=== PATIENT | female | born 1990 | race Caucasian/White ===

== ENCOUNTER 2018-04-06 12:41 | Inpatient (IN) | payer OTHER ==
[2018-04-06] MEDS ORDERED: Nalbuphine 20 MG/ML 1 ML Syringe IVPUSH PRN (13:55)
[2018-04-06] MEDS ORDERED: Sodium Chloride 0.9% 10 ML Syringe FLUSH PRN (13:55)
[2018-04-06] MEDS ORDERED: Oxytocin/Lactated Ringers 10 UNIT/1,000 ML BAG IV SCH ×2 (14:00)
[2018-04-06] MEDS ORDERED: Misoprostol 25 MCG (1/4 of 100 MCG) Tab VAG ONE (14:30)
[2018-04-06] MEDS ORDERED: Ampicillin 2 GM in Sodium Chloride 0.9% 100 ML IV ONE (14:30)
--- NOTE | 2018-04-06 14:35 | PCM.LDHP ---
L&D History of Present Illness - General Date of Service: 04/06/18 Admit Problem/Dx: Patient Status Order with Admit Dx/Problem 04/06/18 13:15 Patient Status [ADT] Routine Admission Diagnosis/Problem Admission Diagnosis/Problem Source of Information: Patient History Limitations: Reports: No Limitations - History of Present Illness Introduction:: 28-year-old ALISHA 04/02/18 at estimated gestational age of 40 weeks and 4 days presented for induction of labor. GBS positive antibiotics will be started History of HSV in the past has been treated since 36 weeks no outbreaks at present time. Blood work on 08/05/17 blood type O-positive antibody screen negative hemoglobin hematocrit 14/42.4 platelets 265,000 Pap smear negative, rubella immune, serology nonreactive, urine culture no growth. Hepatitis B surface antigen negative declined HIV. GC and chlamydia probe were negative On 12/31/17 hemoglobin hematocrit 12.5/36.5 platelets 179,001 hour OB glucose screen 94, RPR nonreactive. 03/03/18 group B strep positive Plan induction of labor. 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: Psychiatric History: Reports: Depression - Infectious Disease History Infectious Disease History: Reports: Herpes, Other (See Below) Other Infectious Disease History: hx of chlamydia - Past Surgical History HEENT Surgical History: Reports: Other (See Below) Other HEENT Surgeries/Procedures: wisdom teeth Social & Family History - Family History Family Medical History: Noncontributory - Tobacco Use Smoking Status *Q: Never Smoker - Caffeine Use Caffeine Use: Reports: Coffee, Soda - Recreational Drug Use Recreational Drug Use: No H&P Review of Systems - Review of Systems: Review Of Systems: See Below General: Reports: No Symptoms HEENT: Reports: No Symptoms Pulmonary: Reports: No Symptoms Cardiovascular: Reports: No Symptoms Gastrointestinal: Reports: No Symptoms Genitourinary: Reports: No Symptoms Musculoskeletal: Reports: No Symptoms Skin: Reports: No Symptoms Psychiatric: Reports: No Symptoms Neurological: Reports: No Symptoms Hematologic/Lymphatic: Reports: No Symptoms Immunologic: Reports: No Symptoms L&D Exam - Exam Exam: See Below - Vital Signs Weight: 208 lb 8 oz - OB Specific Fundal Height In cm: 41 Movement: Active Heart Tones: Present Heart Tones per Min: 140 Heart Rate (FHR) Variability: Moderate (6-25 bmp) Presentation: Vertex - Stoddard Score Stoddard Score Cervix Position: Posterior Stoddard Score Consistency: Soft Stoddard Score Effacement: 31-50% Stoddard Score Dilation: 1-2 cm Stoddard Score 's Station: -2 Stoddard Score Total: 5 - Exam General: Alert, Oriented HEENT: Conjunctiva Clear, Mucosa Moist & [place], PERRLA Neck: Supple, Trachea Midline Lungs: Clear to Auscultation, Normal Respiratory Effort Cardiovascular: Regular Rate, Regular Rhythm GI/Abdominal Exam: Normal Bowel Sounds, Soft Genitourinary: Normal external exam Extremities: Normal Inspection, Normal Range of Motion, Non-Tender, No Pedal Edema, Normal Capillary Refill Skin: Warm, Dry, Intact Neurological: Reflexes Equal Bilateral Psychiatric: Alert, Normal Affect, Normal Mood - Problem List (1) 40 weeks gestation of SNOMED Code(s): 96007032 ICD Code: Z3A.40 - 40 WEEKS GESTATION OF Status: Acute Current Visit: Yes (2) GBS carrier SNOMED Code(s): 6826433145843 ICD Code: Z22.330 - CARRIER OF GROUP B STREPTOCOCCUS Status: Acute Current Visit: Yes (3) Herpes simplex type 2 (HSV-2) infection affecting , antepartum SNOMED Code(s): 008943484 ICD Code: O98.519 - OTHER VIRAL DISEASES COMPLICATING , UNSP TRIMESTER; B00.9 - HERPESVIRAL INFECTION, UNSPECIFIED Status: Acute Current Visit: Yes Onset Date: Problem Details: no lesions since 36 weeks on Valacyclovir prophylaxis Problem List Initiated/Reviewed/Updated: No Orders Last 24hrs: Active Orders 24 hr Category Date Time Status Patient Status [ADT] Routine ADT 04/06/18 13:15 Active Activity as Tolerated [RC] PFP Care 04/06/18 13:56 Active Communication Order [RC] ASDIRECTED Care 04/06/18 13:56 Active Heart Tones [RC] ASDIRECTED Care 04/06/18 13:56 Active Non Stress Test [RC] PER UNIT ROUTINE Care 04/06/18 13:56 Active Notify Provider [RC] PFP Care 04/06/18 13:56 Active Notify Provider [RC] PRN Care 04/06/18 13:56 Active Peripheral IV Care [RC] . DIRECTED Care 04/06/18 13:56 Active Vital Signs [RC] PER UNIT ROUTINE Care 04/06/18 13:56 Active Regular Diet [DIET] Diet 04/06/18 Dinner Active CBC WITH AUTO DIFF [HEME] Stat Lab 04/06/18 14:15 Received RAPID PLASMA REAGIN,RPR [CHEM] Routine Lab 04/06/18 14:15 Received TYPE AND SCREEN [BBK] Stat Lab 04/06/18 14:15 Received Ampicillin 1 gm Med 04/06/18 18:30 Active Sodium Chloride 0.9% [Normal Saline] 100 ml IV Q4H Ampicillin 2 gm Med 04/06/18 14:30 Active Sodium Chloride 0.9% [Normal Saline] 100 ml IV ONETIME Lactated Ringers [Ringers, Lactated] 1,000 ml Med 04/06/18 14:00 Active IV ASDIRECTED Nalbuphine [Nubain] Med 04/06/18 13:55 Active 10 mg IVPUSH Q2H PRN Oxytocin/Lactated Ringers [Pitocin in LR 10 Units/1,000 Med 04/06/18 14:00 Active ML] 10 unit in 1,000 ml IV .CONTINUOUS Oxytocin/Lactated Ringers [Pitocin in LR 10 Units/1,000 Med 04/06/18 14:00 Active ML] 10 unit in 1,000 ml IV TITRATE Sodium Chloride 0.9% [Saline Flush] Med 04/06/18 13:55 Active 10 ml FLUSH ASDIRECTED PRN miSOPROStol [Cytotec] Med 04/06/18 14:30 Once 25 mcg VAG ONETIME ONE Electronic Heart Tones Ext w TOCO [WOMSER] Oth 04/06/18 13:56 Ordered Routine Electronic Heart Tones Internal [WOMSER] Per Unit Oth 04/06/18 13:56 Ordered Routine Peripheral IV Insertion Adult [OM.PC] Routine Oth 04/06/18 13:56 Ordered Resuscitation Status Routine Resus Stat 04/06/18 13:55 Ordered Medication Orders Ampicillin Sodium 2 gm/ Sodium (Chloride) 100 mls @ 200 mls/hr IV ONETIME ONE Stop: 04/06/18 14:59 Last Admin: 02/12/19 14:28 Dose: 200 mls/hr Ampicillin Sodium 1 gm/ Sodium (Chloride) 100 mls @ 200 mls/hr IV Q4H KIRAN Lactated Ringer's (Ringers, Lactated) 1,000 mls @ 100 mls/hr IV ASDIRECTED KIRAN Oxytocin/Lactated Ringer's (Pitocin In Lr 10 Units/1,000 Ml) 10 unit in 1,000 mls @ 12 mls/hr IV TITRATE KIRAN; Protocol Oxytocin/Lactated Ringer's (Pitocin In Lr 10 Units/1,000 Ml) 10 unit in 1,000 mls @ 500 mls/hr IV .CONTINUOUS KIRAN Misoprostol (Cytotec) 25 mcg VAG ONETIME ONE Stop: 04/06/18 14:31 Last Admin: 04/06/18 14:28 Dose: 25 mcg Nalbuphine HCl (Nubain) 10 mg IVPUSH Q2H PRN PRN Reason: pain Sodium Chloride (Saline Flush) 10 ml FLUSH ASDIRECTED PRN PRN Reason: Keep Vein Open Assessment/Plan Comment:: Plan induction and delivery. First Cytotec 25 g placed at 1417 hrs.
[2018-04-06] MEDS: Misoprostol 25 MCG (1/4 of 100 MCG) Tab VAG SCH ×2 (16:57→20:59)
--- NOTE | 2018-04-06 16:58 | PCM.SN ---
- Free Text/Narrative Note: Second dosage of Cytotec this time 50 g placed in the superior aspect of the vagina near the cervical os. Patient is angie every 3-5 minutes. No cervical change. Will repeat cytotech at 2100 hrs. and again at 0100 hrs. and then start Pitocin at 0500 hrs.
--- NOTE | 2018-04-06 17:14 | PCM.PREANE ---
Preanesthetic Assessment - Procedure Proposed Procedure: DAGMAR - Anesthesia/Transfusion/Family Hx Anesthesia History: Prior Anesthesia Without Reaction (no problems with wisdom teeth extraction) Transfusion History: No Prior Transfusion(s) - Review of Systems General: No Symptoms Pulmonary: No Symptoms Cardiovascular: No Symptoms Gastrointestinal: Other (GERD) Neurological: No Symptoms Other: Reports: None - Physical Assessment NPO Status Date: 04/06/18 NPO Status Time: 13:00 O2 Sat by Pulse Oximetry: 100 Respiratory Rate: 18 Vital Signs: Last Vital Signs Temp 36.6 C 04/06/18 13:56 Pulse 82 04/06/18 13:56 Resp 18 04/06/18 13:56 BP 123/80 04/06/18 13:56 Pulse Ox 100 04/06/18 13:56 Height: 1.57 m Weight: 94.574 kg ASA Class: 2 Mental Status: Alert & Oriented x3 Airway Class: Mallampati = 2 Dentition: Reports: Normal Dentition Thyro-Mental Finger Breadths: 3 Mouth Opening Finger Breadths: 3 ROM/Head Extension: Full Lungs: Clear to Auscultation, Normal Respiratory Effort Cardiovascular: Regular Rate, Regular Rhythm - Lab Values: Laboratory Last Values WBC 8.46 K/mm3 (3.98-10.04) 04/06/18 14:15 RBC 4.24 M/mm3 (3.98-5.22) 04/06/18 14:15 Hgb 13.5 gm/L (11.2-15.7) 04/06/18 14:15 Hct 39.7 % (34.1-44.9) 04/06/18 14:15 MCV 93.6 fl (79.4-94.8) 04/06/18 14:15 MCH 31.8 pg (25.6-32.2) 04/06/18 14:15 MCHC 34.0 g/dl (32.2-35.5) 04/06/18 14:15 RDW Std Deviation 46.1 fL (36.4-46.3) 04/06/18 14:15 Plt Count 166 K/mm3 (182-369) L 04/06/18 14:15 MPV 11.1 fl (9.4-12.3) 04/06/18 14:15 Neut % (Auto) 75.6 % (34.0-71.1) H 04/06/18 14:15 Lymph % (Auto) 16.4 % (19.3-51.7) L 04/06/18 14:15 Richardson % (Auto) 6.9 % (4.7-12.5) 04/06/18 14:15 Eos % (Auto) 0.5 (0.7-5.8) L 04/06/18 14:15 Baso % (Auto) 0.1 % (0.1-1.2) 04/06/18 14:15 Neut # (Auto) 6.40 K/mm3 (1.56-6.13) H 04/06/18 14:15 Lymph # (Auto) 1.39 K/mm3 (1.18-3.74) 04/06/18 14:15 Richardson # (Auto) 0.58 K/mm3 (0.24-0.36) H 04/06/18 14:15 Eos # (Auto) 0.04 K/mm3 (0.04-0.36) 04/06/18 14:15 Baso # (Auto) 0.01 K/mm3 (0.01-0.08) 04/06/18 14:15 Blood Type O POSITIVE 04/06/18 14:15 Gel Antibody Screen Negative 04/06/18 14:15 - Allergies Allergies/Adverse Reactions: Allergies Allergy/AdvReac Type Severity Reaction Status Date / Time No Known Allergies Allergy Verified 04/06/18 13:55 - Blood Blood Available: No Product(s) Available: None - Anesthesia Plan Pre-Op Medication Ordered: None - Acknowledgements Anesthesia Type Planned: Epidural Pt an Appropriate Candidate for the Planned Anesthesia: Yes Alternatives and Risks of Anesthesia Discussed w Pt/Guardian: Yes Pt/Guardian Understands and Agrees with Anesthesia Plan: Yes 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: Psychiatric History: Reports: Depression - Infectious Disease History Infectious Disease History: Reports: Herpes, Other (See Below) Other Infectious Disease History: hx of chlamydia - Past Surgical History HEENT Surgical History: Reports: Other (See Below) Other HEENT Surgeries/Procedures: wisdom teeth - SUBSTANCE USE Smoking Status *Q: Never Smoker Recreational Drug Use History: No - HOME MEDS Home Medications: Home Meds PNV #116/Iron Fumarate/FA/DHA [Expecta Combo Pack] 1 each PO DAILY 02/10 [History] valACYclovir [Valtrex] 500 mg PO BID 04/06/18 [History] - CURRENT (IN HOUSE) MEDS Current Meds: Current Medications Ampicillin Sodium 1 gm/ Sodium (Chloride) 100 mls @ 200 mls/hr IV Q4H KIRAN Lactated Ringer's (Ringers, Lactated) 1,000 mls @ 100 mls/hr IV ASDIRECTED KIRAN Oxytocin/Lactated Ringer's (Pitocin In Lr 10 Units/1,000 Ml) 10 unit in 1,000 mls @ 12 mls/hr IV TITRATE KIRAN; Protocol Oxytocin/Lactated Ringer's (Pitocin In Lr 10 Units/1,000 Ml) 10 unit in 1,000 mls @ 500 mls/hr IV .CONTINUOUS KIRAN Misoprostol (Cytotec) 50 mcg VAG Q4HR KIRAN Last Admin: 04/06/18 16:57 Dose: 50 mcg Nalbuphine HCl (Nubain) 10 mg IVPUSH Q2H PRN PRN Reason: pain Sodium Chloride (Saline Flush) 10 ml FLUSH ASDIRECTED PRN PRN Reason: Keep Vein Open Valacyclovir HCl (Valtrex) 500 mg PO BID KIRAN Discontinued Medications Ampicillin Sodium 2 gm/ Sodium (Chloride) 100 mls @ 200 mls/hr IV ONETIME ONE Stop: 04/06/18 14:59 Last Admin: 04/06/18 14:28 Dose: 200 mls/hr Misoprostol (Cytotec) 25 mcg VAG ONETIME ONE Stop: 04/06/18 14:31 Last Admin: 04/06/18 14:28 Dose: 25 mcg
[2018-04-06] MEDS ORDERED: ePHEDrine 50 MG/ML SDV IVPUSH PRN (17:15)
[2018-04-06] MEDS ORDERED: fentaNYL 100 MCG/2 ML SDV EPIDUR PRN (17:15)
[2018-04-06] MEDS ORDERED: diphenhydrAMINE 50 MG/ML SDV IVPUSH PRN (17:15)
[2018-04-06] MEDS ORDERED: Ondansetron 4 MG/2 ML SDV IVPUSH PRN (17:15)
[2018-04-06] MEDS ORDERED: Bupivacaine/fentaNYL/NS 100 ML Bag EPIDUR SCH (17:15)
[2018-04-06] MEDS: Ampicillin 1 GM in Sodium Chloride 0.9% 100 ML IV SCH ×2 (18:26→22:30)
[2018-04-06] MEDS ORDERED: valACYclovir 500 MG Tab PO SCH (21:00)
[2018-04-07] MEDS: Misoprostol 25 MCG (1/4 of 100 MCG) Tab VAG SCH ×2 (01:01→06:21)
[2018-04-07] MEDS: Ampicillin 1 GM in Sodium Chloride 0.9% 100 ML IV SCH ×3 (02:28→10:36)
[2018-04-07] MEDS: Lactated Ringers 1,000 ML IV SCH ×5 (04:17→12:12)
[2018-04-07] MEDS ORDERED: fentaNYL/Bupivacaine-NS 2 MCG/ML-0.125%/PF 100 ML Bag EP SCH (04:30)
--- NOTE | 2018-04-07 07:59 | PCM.SN ---
- Free Text/Narrative Note: Cervix 8-9, 100%, soft anterior, -1 to 0 station, scalp stim acceleration. Decreased variability, change positions, and add D5W to see if this will improve variability.
[2018-04-07] MEDS ORDERED: Dextrose 5%-Lactated Ringers 1,000 ML IV SCH ×2 (08:00→14:30)
[2018-04-07] MEDS ORDERED: Dextrose 5%-Lactated Ringers 1,000 ML ONE (08:04)
--- NOTE | 2018-04-07 12:00 | PCM.SN ---
- Free Text/Narrative Note: Has been pushing for almost two hours (since 1000). No change in station since beginning pushing at -1 station, possibly OP. Epidural turned off at 1100 to allow for increased urge to push. BTB 5-10. Making preparations for section. Patient is exhausted from pushing and no change in station. Patient and agree with proceeding with section.
[2018-04-07] MEDS ORDERED: ceFAZolin 2 GM in Premix Bag 1 BAG IV ONE (12:01)
[2018-04-07] MEDS ORDERED: Citric Acid/Sodium Citrate Solution 30 ML Cup PO ONE (12:01)
[2018-04-07] MEDS ORDERED: Metoclopramide 10 MG/2 ML SDV IVPUSH ONE (12:01)
[2018-04-07] MEDS ORDERED: Bupivacaine 0.5% 30 ML SDV ONE (12:03)
[2018-04-07] MEDS ORDERED: Morphine PF 1 MG/ML Amp ONE (12:04)
[2018-04-07] MEDS ORDERED: ceFAZolin 1 GM Vial ONE (12:05)
[2018-04-07] MEDS ORDERED: Lidocaine 2% with EPINEPHrine 1:200,000 20 ML SDV ONE ×2 (12:05)
[2018-04-07] MEDS ORDERED: Sodium Bicarbonate 8.4% 50 MEQ/50 ML SDV ONE (12:05)
[2018-04-07] MEDS ORDERED: Oxytocin 10 Units/1 ML SDV ONE (12:06)
[2018-04-07] MEDS ORDERED: fentaNYL 100 MCG/2 ML SDV ONE (12:08)
[2018-04-07] MEDS ORDERED: Ondansetron 4 MG/2 ML SDV ONE (12:27)
[2018-04-07] MEDS ORDERED: Phenylephrine/Normal Saline 100 MCG/ML 10 ML Syringe ONE (12:42)
[2018-04-07] MEDS ORDERED: Lactated Ringers 2,000 ML ONE (12:53)
[2018-04-07] MEDS ORDERED: Ketorolac 30 MG/ML SDV ONE (13:21)
--- NOTE | 2018-04-07 13:31 | PCM.OPNOTE ---
- General Post-Op/Procedure Note Date of Surgery/Procedure: 04/07/18 Operative Procedure(s): Primary low segment section Pre Op Diagnosis: Prior to progress second stage of labor and maternal exhaustion Post-Op Diagnosis: Same plus nuchal cord times one, persistent occiput posterior Anesthesia Technique: Epidural Primary Surgeon: Ming Abarca Secondary Surgeon: George Metz Anesthesia Provider: Dara Tirado Web Content Coordinator: Monico Barnett (PAS) Reason Web Content Coordinator Was Necessary: Asst. surgery, decrease comorbidity and mortality. Role of Web Content Coordinator: Asst. surgery, decrease comorbidity and mortality. Fluid Replacement, Intraop: 2,300 Output, Urine Amount: 100 EBL in mLs: 2,000 Drain/Tube Comments:: Bliss Complications: None Condition: Good Free Text/Narrative:: Intake & Output 04/06/18 04/07/18 04/07/18 22:59 06:59 14:59 Intake Total 420 2300 Balance 420 2300 Patient was transported to the operating room and placed under epidural anesthesia in the supine position with a wedge under the right hip and right flank. SCDs in place and functioning prior surgery. Ancef 2 g given intravenously prior surgery. Patient prepared and draped in a sterile fashion. Timeout performed. Adequate level of anesthesia was confirmed patient's was brought to the operating room. A low segment transverse section was performed with a Pfannenstiel incision at the skin and care was sharp section to into the anterior fascia peritoneal cavity was entered without difficulty. Bladder flap was created pushed caudad. Low segment transverse C- section was performed with clear fluid. There were multiple large venous sinuses that bled on the superior and inferior portion of the incision causing increased blood loss which was unavoidable. The male liveborn was delivered at 1241 hrs. on Thursday04/07/18 occiput posterior and nuchal cord times one Apgars 8/9 called by engineer station mainline Dr. Yeboah who was in attendance at delivery and cared for the . Weight was 30/8/90 grams/8 lbs. 9 oz. Routine cord blood collected from three-vessel cord and placenta was removed manually. Endometrial cavity inspected. Sponge needle pack and instrument count correct times one the uterus closed with 2 layer running locking suture of 0 Monocryl for the first layer and a horizontal imbricating modified Lembert suture for the second layer. Both tubes and ovaries were normal clot screen from the gutters and cul-de-sac uterus replaced into the abdominal cavity incision reinspected no bleeding. Sponge needle pack instrument and sharp count correct 2 and the abdominal cavity was closed with #1 PDS running suture 3 interrupted 0 Monocryl sutures for subcutaneous approximation and subcuticular closure of the incision with 3-0 Monocryl Nicola needle Dermabond Preneo applied. Clots were cleaned from the vagina at the end the procedure and added to the blood loss total 2000 mL. Patient transported postanesthesia care unit in satisfactory condition. No blood transfusions given. Toradol 30 mg given at 1325 hrs. This note was created, at least in part, by the use of [employer] voice dictation system. Inadvertent typographical errors, due to software recognition problems, may exist.
--- NOTE | 2018-04-07 13:32 | PCM.POSTAN ---
POST ANESTHESIA ASSESSMENT - MENTAL STATUS Mental Status: Alert, Oriented - VITAL SIGNS Pulse Rate: 118 SaO2: 99 Resp Rate: 17 Blood Pressure: 100/49 Temperature: 36.8 C - RESPIRATORY Respiratory Status: Respiratory Rate WNL, Airway Patent, O2 Saturation Stable, Supplemental Oxygen - CARDIOVASCULAR CV Status: Pulse Rate WNL, Blood Pressure Stable - GASTROINTESTINAL GI Status: No Symptoms - PAIN Pain Score: 0 - POST OP HYDRATION Hydration Status: Adequate & Stable
[2018-04-07] MEDS ORDERED: diphenhydrAMINE 50 MG/ML SDV IVPUSH PRN ×2 (14:08→14:30)
[2018-04-07] MEDS ORDERED: Ondansetron 4 MG/2 ML SDV IVPUSH PRN (14:08)
[2018-04-07] MEDS ORDERED: fentaNYL 100 MCG/2 ML SDV IVPUSH PRN (14:08)
[2018-04-07] MEDS ORDERED: Witch Hazel Medicated Pads 100/Jar TOP PRN (14:30)
[2018-04-07] MEDS ORDERED: Docusate Sodium 100 MG Cap PO PRN (14:30)
[2018-04-07] MEDS ORDERED: Sodium Chloride 0.9% 10 ML Syringe FLUSH PRN (14:30)
[2018-04-07] MEDS ORDERED: Naloxone 0.4 MG/ML SDV IVPUSH PRN (14:30)
[2018-04-07] MEDS ORDERED: Ondansetron 4 MG/2 ML SDV IV PRN (14:30)
[2018-04-07] MEDS ORDERED: Acetaminophen 325 MG Tab PO PRN (14:30)
[2018-04-07] MEDS ORDERED: ePHEDrine 50 MG/ML SDV IVPUSH PRN (14:30)
[2018-04-07] MEDS ORDERED: Lanolin 100% Cream 7 GM Tube TOP PRN (14:30)
[2018-04-07] MEDS: Simethicone 80 MG Tab.Chew PO SCH ×2 (17:47→21:44)
[2018-04-07] MEDS: Ketorolac 30 MG/ML SDV IVPUSH SCH (19:33)
[2018-04-07] MEDS ORDERED: VALACYCLOVIR 500 MG PO SCH (21:00)
[2018-04-07] MEDS: valACYclovir 500 MG Tab PO SCH (21:44)
[2018-04-07] MEDS ORDERED: Bupivacaine 0.25% 10 ML SDV ONE (22:00)
[2018-04-07] MEDS ORDERED: Lidocaine 1.5% with EPINEPHrine 1:200,000 5 ML Amp ONE (22:00)
[2018-04-08] MEDS: Ketorolac 30 MG/ML SDV IVPUSH SCH ×2 (01:30→07:37)
--- NOTE | 2018-04-08 08:05 | PCM.SN ---
- Free Text/Narrative Note: /postop day #1 No cough or chest congestion. Abdomen is soft uterus involuting normally. Incision appears normal. No heavy vaginal bleeding. No leg cramping. Hemoglobin dropped significantly to 8.4 the patient not symptomatic will with old blood transfusions were now determining whether not indicated after ambulation and showering.
[2018-04-08] MEDS ORDERED: Prenatal Multivitamin with Calcium/Folic Acid/Iron Tab PO SCH (09:00)
[2018-04-08] MEDS: valACYclovir 500 MG Tab PO SCH ×2 (09:07→21:48)
[2018-04-08] MEDS: Simethicone 80 MG Tab.Chew PO SCH ×4 (09:07→21:48)
--- NOTE | 2018-04-08 12:49 | PCM48HPAN ---
Post Anesthesia Note - EVALUATION WITHIN 48HRS OF ANESTHETIC Vital Signs in Normal Range: Yes Patient Participated in Evaluation: Yes Respiratory Function Stable: Yes Airway Patent: Yes Cardiovascular Function Stable: Yes Hydration Status Stable: Yes Pain Control Satisfactory: Yes Nausea and Vomiting Control Satisfactory: Yes Mental Status Recovered: Yes
[2018-04-08] MEDS: Ibuprofen 600 MG Tab PO PRN (16:41)
[2018-04-08] MEDS: Acetaminophen/oxyCODONE 325-5 MG Tab PO PRN ×2 (18:59→21:48)
[2018-04-09] MEDS: Ibuprofen 600 MG Tab PO PRN ×2 (00:08→08:35)
[2018-04-09] MEDS: Acetaminophen/oxyCODONE 325-5 MG Tab PO PRN (06:24)
[2018-04-09] MEDS: Simethicone 80 MG Tab.Chew PO SCH ×2 (08:35→12:34)
[2018-04-09] MEDS: valACYclovir 500 MG Tab PO SCH (08:35)
--- NOTE | 2018-04-09 09:35 | PCM.DCSUM1 ---
Discharge Summary - Hospital Course Free Text/Narrative:: [facility] Post-Op/Procedure Note Patient Name: RACHEL GUERRERO Date of : 86 Patient Status: Inpatient Attending Provider: Ming Abarca Date: 04/07/18 13:24 Initialization Date: 04/07/18 13:24 - General Post-Op/Procedure Note Date of Surgery/Procedure: 04/07/18 Operative Procedure(s): Primary low segment section Pre Op Diagnosis: Prior to progress second stage of labor and maternal exhaustion Post-Op Diagnosis: Same plus nuchal cord times one, persistent occiput posterior Anesthesia Technique: Epidural Primary Surgeon: Ming Abarca Secondary Surgeon: George Metz Anesthesia Provider: Dara Tirado Title Manager: Monico Barnett (PAS) Reason Title Manager Was Necessary: Asst. surgery, decrease comorbidity and mortality. Role of Title Manager: Asst. surgery, decrease comorbidity and mortality. Fluid Replacement, Intraop: 2,300 Output, Urine Amount: 100 EBL in mLs: 2,000 Drain/Tube Comments:: Bliss Complications: None Condition: Good Free Text/Narrative:: Intake & Output 04/06/18 04/07/18 04/07/18 22:59 06:59 14:59 Intake Total 420 2300 Balance 420 2300 Patient was transported to the operating room and placed under epidural anesthesia in the supine position with a wedge under the right hip and right flank. SCDs in place and functioning prior surgery. Ancef 2 g given intravenously prior surgery. Patient prepared and draped in a sterile fashion. Timeout performed. Adequate level of anesthesia was confirmed patient's was brought to the operating room. A low segment transverse section was performed with a Pfannenstiel incision at the skin and care was sharp section to into the anterior fascia peritoneal cavity was entered without difficulty. Bladder flap was created pushed caudad. Low segment transverse C- section was performed with clear fluid. There were multiple large venous sinuses that bled on the superior and inferior portion of the incision causing increased blood loss which was unavoidable. The male liveborn was delivered at 1241 hrs. on Thursday04/07/18 occiput posterior and nuchal cord times one Apgars 8/[address] Yeboah who was in attendance at delivery and cared for the . Weight was 30/8/90 grams/8 lbs. 9 oz. Routine cord blood collected from three-vessel cord and placenta was removed manually. Endometrial cavity inspected. Sponge needle pack and instrument count correct times one the uterus closed with 2 layer running locking suture of 0 Monocryl for the first layer and a horizontal imbricating modified Lembert suture for the second layer. Both tubes and ovaries were normal clot screen from the gutters and cul-de-sac uterus replaced into the abdominal cavity incision reinspected no bleeding. Sponge needle pack instrument and sharp count correct 2 and the abdominal cavity was closed with #1 PDS running suture 3 interrupted 0 Monocryl sutures for subcutaneous approximation and subcuticular closure of the incision with 3-0 Monocryl Nicola needle Dermabond Preneo applied. Clots were cleaned from the vagina at the end the procedure and added to the blood loss total 2000 mL. Patient transported postanesthesia care unit in satisfactory condition. No blood transfusions given. Toradol 30 mg given at 1325 hrs. This note was created, at least in part, by the use of [employer] voice dictation system. Inadvertent typographical errors, due to software recognition problems, may exist. Patient completed E PDS 11/22 history of depression no suicidal plans , ideations, desire to hurt self or others. We will begin sertraline 25 mg by mouth daily for 8 days and then 50 mg by mouth daily thereafter dispense 30 refill 5 HPI Initial Comments: [facility] Post-Op/Procedure Note Patient Name: RACHEL GUERRERO Date of : 86 Patient Status: Inpatient Attending Provider: Ming Abarca Date: 04/07/18 13:24 Initialization Date: 04/07/18 13:24 - General Post-Op/Procedure Note Date of Surgery/Procedure: 04/07/18 Operative Procedure(s): Primary low segment section Pre Op Diagnosis: Prior to progress second stage of labor and maternal exhaustion Post-Op Diagnosis: Same plus nuchal cord times one, persistent occiput posterior Anesthesia Technique: Epidural Primary Surgeon: Ming Abarca Secondary Surgeon: George Metz Anesthesia Provider: Dara Tirado Title Manager: Monico Barnett (PAS) Reason Title Manager Was Necessary: Asst. surgery, decrease comorbidity and mortality. Role of Title Manager: Asst. surgery, decrease comorbidity and mortality. Fluid Replacement, Intraop: 2,300 Output, Urine Amount: 100 EBL in mLs: 2,000 Drain/Tube Comments:: Bliss Complications: None Condition: Good Free Text/Narrative:: Intake & Output 04/06/18 04/07/18 04/07/18 22:59 06:59 14:59 Intake Total 420 2300 Balance 420 2300 Patient was transported to the operating room and placed under epidural anesthesia in the supine position with a wedge under the right hip and right flank. SCDs in place and functioning prior surgery. Ancef 2 g given intravenously prior surgery. Patient prepared and draped in a sterile fashion. Timeout performed. Adequate level of anesthesia was confirmed patient's was brought to the operating room. A low segment transverse section was performed with a Pfannenstiel incision at the skin and care was sharp section to into the anterior fascia peritoneal cavity was entered without difficulty. Bladder flap was created pushed caudad. Low segment transverse C- section was performed with clear fluid. There were multiple large venous sinuses that bled on the superior and inferior portion of the incision causing increased blood loss which was unavoidable. The male liveborn was delivered at 1241 hrs. on Thursday04/07/18 occiput posterior and nuchal cord times one Apgars 8/[address] Yeboah who was in attendance at delivery and cared for the . Weight was 30/8/90 grams/8 lbs. 9 oz. Routine cord blood collected from three-vessel cord and placenta was removed manually. Endometrial cavity inspected. Sponge needle pack and instrument count correct times one the uterus closed with 2 layer running locking suture of 0 Monocryl for the first layer and a horizontal imbricating modified Lembert suture for the second layer. Both tubes and ovaries were normal clot screen from the gutters and cul-de-sac uterus replaced into the abdominal cavity incision reinspected no bleeding. Sponge needle pack instrument and sharp count correct 2 and the abdominal cavity was closed with #1 PDS running suture 3 interrupted 0 Monocryl sutures for subcutaneous approximation and subcuticular closure of the incision with 3-0 Monocryl Nicola needle Dermabond Preneo applied. Clots were cleaned from the vagina at the end the procedure and added to the blood loss total 2000 mL. Patient transported postanesthesia care unit in satisfactory condition. No blood transfusions given. Toradol 30 mg given at 1325 hrs. This note was created, at least in part, by the use of [employer] voice dictation system. Inadvertent typographical errors, due to software recognition problems, may exist. Patient completed E PDS 11/22 history of depression no suicidal plans , ideations, desire to hurt self or others. We will begin sertraline 25 mg by mouth daily for 8 days and then 50 mg by mouth daily thereafter dispense 30 refill 5 Brief History: [facility] . Post-Op/Procedure [facility]. [id number] Date of : Patient Status: Inpatient. Attending Provider: Ming Abarcaount Number: [id number]. Date: 04/07/18 13:24Initialization Date: 04/07/18 13:24. - General Post-Op/Procedure Note. Date of Surgery/Procedure: 04/07/18. Operative Procedure(s): Primary low segment section. Pre Op Diagnosis : Prior to progress second stage of labor and maternal exhaustion. Post-Op Diagnosis: Same plus nuchal cord times one, persistent occiput posterior. Anesthesia Technique: Epidural. Primary Surgeon: Ming Abarca. Secondary Surgeon: George Metz. Anesthesia Provider: Dara Tirado. Title Manager: Monico Barnett ([facility]). Reason Title Manager Was Necessary: Asst. surgery, decrease comorbidity and mortality. Role of Title Manager: Asst. surgery, decrease comorbidity and mortality. Fluid Replacement, Intraop: 2,300. Output, Urine Amount: 100. EBL in mLs: 2,000. Drain/Tube Comments:: Bliss. Complications: None. Condition: Good. Free Text/Narrative:: Intake & Output. 04/06/1901/. [id number]:[id number]. Intake [id number]. [id number]. Patient was transported to the operating room and placed under epidural anesthesia in the supine position with a wedge under the right hip and right flank. SCDs in place and functioning prior surgery. Ancef 2 g given intravenously prior surgery. Patient prepared and draped in a sterile fashion. Timeout performed. Adequate level of anesthesia was confirmed patient's was brought to the operating room. A low segment transverse section was performed with a Pfannenstiel incision at the skin and care was sharp section to into the anterior fascia peritoneal cavity was entered without difficulty. Bladder flap was created pushed caudad. Low segment transverse was performed with clear fluid. There were multiple large venous sinuses that bled on the superior and inferior portion of the incision causing increased blood loss which was unavoidable. The male liveborn was delivered at 1241 hrs. on Thursday04/07/18 occiput posterior and nuchal cord times one Apgars 8/[address] Yeboah who was in attendance at delivery and cared for the . Weight was 30/8/90 grams/8 lbs. 9 oz. Routine cord blood collected from three-vessel cord and placenta was removed manually. Endometrial cavity inspected. Sponge needle pack and instrument count correct times one the uterus closed with 2 layer running locking suture of 0 Monocryl for the first layer and a horizontal imbricating modified Lembert suture for the second layer. Both tubes and ovaries were normal clot screen from the gutters and cul-de-sac uterus replaced into the abdominal cavity incision reinspected no bleeding. Sponge needle pack instrument and sharp count correct 2 and the abdominal cavity was closed with # 1 PDS running suture 3 interrupted 0 Monocryl sutures for subcutaneous approximation and subcuticular closure of the incision with 3-0 Monocryl Nicola needle Dermabond Preneo applied. Clots were cleaned from the vagina at the end the procedure and added to the blood loss total 2000 mL. Patient transported postanesthesia care unit in satisfactory condition. No blood transfusions given. Toradol 30 mg given at 1325 hrs. This note was created, at least in part , by the use of [employer] voice dictation system. Inadvertent typographical errors , due to software recognition problems, may exist. Patient completed E PDS history of depression no suicidal plans, ideations, desire to hurt self or others. We will begin sertraline 25 mg by mouth daily for 8 days and then 50 mg by mouth daily thereafter dispense 30 refill 5 Diagnosis: Stroke: No - Discharge Data Discharge Date: 04/09/18 Discharge Disposition: Home, Self-Care 01 Condition: Good - Discharge Diagnosis/Problem(s) (1) 40 weeks gestation of SNOMED Code(s): 11947466 ICD Code: Z3A.40 - 40 WEEKS GESTATION OF Status: Acute Current Visit: Yes (2) GBS carrier SNOMED Code(s): 5855132287720 ICD Code: Z22.330 - CARRIER OF GROUP B STREPTOCOCCUS Status: Acute Current Visit: Yes (3) Herpes simplex type 2 (HSV-2) infection affecting , antepartum SNOMED Code(s): 749101429 ICD Code: O98.519 - OTHER VIRAL DISEASES COMPLICATING , UNSP TRIMESTER; B00.9 - HERPESVIRAL INFECTION, UNSPECIFIED Status: Acute Current Visit: Yes Problem Details: no lesions since 36 weeks on Valacyclovir prophylaxis (4) deliv due to previous difficult deliv, deliv, curr hospitaliz SNOMED Code(s): 878221127, 349425797 ICD Code: O82 - ENCOUNTER FOR DELIVERY WITHOUT INDICATION; Z87.59 - PERSONAL HISTORY OF COMP OF PREG, CHLDBRTH AND THE PUERP Status: Acute Current Visit: Yes (5) Occiput posterior presentation of fetus SNOMED Code(s): 74138590 ICD Code: O64.0XX0 - OBSTRUCTED LABOR DUE TO INCMPL ROTATION OF HEAD, UNSP Status: Acute Current Visit: Yes Qualifiers: Fetus number: single or unspecified fetus Qualified Code(s): O64.0XX0 - Obstructed labor due to incomplete rotation of head, not applicable or unspecified (6) Nuchal cord affecting delivery SNOMED Code(s): 517584189, 548988914 ICD Code: O69.81X0 - LABOR AND DEL COMP BY CORD AROUND NECK, W/O COMPRSN, UNSP Status: Acute Current Visit: Yes (7) Anemia, SNOMED Code(s): 864059675 ICD Code: O90.81 - ANEMIA OF THE PUERPERIUM Status: Acute Current Visit: Yes - Patient Summary/Data Operative Procedure(s) Performed: Primary low segment section Complications: None Consults: None Hospital Course: Uneventful - Patient Instructions Diet: Usual Diet as Tolerated Driving: Do Not Drive (10 days to 2 weeks) Showering/Bathing: May Shower, No Tub Bathing/Swimming (6 weeks) Wound/Incision Care: Keep Operative Site/Wound Site Clean and Dry Notify Provider of: Fever, Increased Pain, Swelling and Redness, Drainage, Nausea and/or Vomiting - Discharge Plan *PRESCRIPTION DRUG MONITORING PROGRAM REVIEWED*: Yes *COPY OF PRESCRIPTION DRUG MONITORING REPORT IN PATIENT DAISY: Yes Prescriptions/Med Rec: Acetaminophen/oxyCODONE [Percocet 325-5 MG] 1 tab PO Q6H PRN #15 tablet PRN Reason: Pain (Moderate 4-6) Ibuprofen [Advil Liqui-Gels] 200 - 600 mg PO Q6H #50 capsule Sertraline [Zoloft] 50 mg PO DAILY #30 tablet Home Medications: Home Meds PNV #116/Iron Fumarate/FA/DHA [Expecta Combo Pack] 1 each PO DAILY 02/10 [History] valACYclovir [Valtrex] 500 mg PO BID 04/06/18 [History] Acetaminophen [Tylenol] 650 mg PO Q6H PRN tablet 04/09/18 [Rx] Acetaminophen/oxyCODONE [Percocet 325-5 MG] 1 tab PO Q6H PRN #15 tablet [Rx] Docusate Sodium [Colace] 100 mg PO Q12H PRN cap 04/09/18 [Rx] Ibuprofen [Advil Liqui-Gels] 200 - 600 mg PO Q6H #50 capsule 04/09/18 [Rx] Lanolin [Lansinoh HPA] 1 applic TOP ASDIRECTED PRN tube 04/09/18 [Rx] Sertraline [Zoloft] 50 mg PO DAILY #30 tablet 04/09/18 [Rx] Simethicone 80 mg PO PCBED tab.chew 04/09/18 [Rx] Witch Sisi [Tucks] 1 pad TOP ASDIRECTED PRN pad 04/09/18 [Rx] Patient Handouts: Breast Pumping Tips, Delivery, Care After Referrals: George Metz MD [Physician] - (See Dr. Cain in 2 weeks in my absence) - Discharge Summary/Plan Comment DC Time >30 min.: No - Patient Data Vitals - Most Recent: Last Vital Signs Temp 98.2 F 04/09/18 08:37 Pulse 108 H 04/09/18 08:37 Resp 16 04/09/18 08:37 BP 123/90 04/09/18 08:37 Pulse Ox 98 04/09/18 08:37 Weight - Most Recent: 208 lb 8 oz I&O - Last 24 hours: Intake & Output 04/08/18 04/09/18 04/09/18 22:59 06:59 14:59 Intake Total 320 Balance 320 Med Orders - Current: Current Medications Acetaminophen (Tylenol) 650 mg PO Q4H PRN PRN Reason: mild pain or fever Diphenhydramine HCl (Benadryl) 25 mg IVPUSH Q6H PRN PRN Reason: Itching or Nausea Docusate Sodium (Colace) 100 mg PO Q12H PRN PRN Reason: Constipation Emollient Ointment (Lansinoh Hpa) 0 gm TOP ASDIRECTED PRN PRN Reason: Sore Nipples Ephedrine Sulfate (Ephedrine Sulfate) 5 mg IVPUSH SEECOMMENT PRN PRN Reason: Other Ibuprofen (Motrin) 600 mg PO Q6H PRN PRN Reason: mild pain or fever Last Admin: 04/09/18 08:35 Dose: 600 mg Naloxone HCl (Narcan) 0.1 mg IVPUSH SEECOMMENT PRN PRN Reason: Respiratory Depression Ondansetron HCl (Zofran) 4 mg IV Q8H PRN PRN Reason: Nausea/Vomiting Oxycodone/Acetaminophen (Percocet 325-5 Mg) 1 - 2 tab PO Q4H PRN PRN Reason: Pain (moderate 4-6) Last Admin: 04/09/18 06:24 Dose: 1 tab Simethicone (Simethicone) 80 mg PO PCBED [facility] Last Admin: 04/09/18 08:35 Dose: 80 mg Sodium Chloride (Saline Flush) 10 ml FLUSH ASDIRECTED PRN PRN Reason: Keep Vein Open Valacyclovir HCl (Valtrex) 500 mg PO BID [facility] Last Admin: 04/09/18 08:35 Dose: 500 mg Witch Sisi (Tucks) 1 pad TOP ASDIRECTED PRN PRN Reason: Perineal Comfort Measure Last Admin: 04/07/18 22:11 Dose: 1 canister Discontinued Medications Bupivacaine HCl (Marcaine 0.5%) Confirm Administered Dose 30 ml .ROUTE .STK-MED ONE Stop: 04/07/18 12:04 Last Admin: 04/07/18 12:37 Dose: 20 ml Bupivacaine HCl (Sensorcaine-Mpf 0.25%) 10 ml .ROUTE .K-MED ONE Stop: 04/07/18 22:01 Cefazolin Sodium (Ancef) Confirm Administered Dose 2 gm .ROUTE .K-MED ONE Stop: 04/07/18 12:06 Citric Acid/Sodium Citrate (Bicitra Solution) 30 ml PO ONETIME ONE Stop: 04/07/18 12:02 Last Admin: 04/07/18 12:08 Dose: 30 ml Diphenhydramine HCl (Benadryl) 25 mg IVPUSH Q6H PRN PRN Reason: Pruritis Diphenhydramine HCl (Benadryl) 25 mg IVPUSH Q6H PRN PRN Reason: Pruritis Ephedrine Sulfate (Ephedrine Sulfate) 5 mg IVPUSH ASDIRECTED PRN PRN Reason: Hypotension Fentanyl (Sublimaze) 100 mcg EPIDUR Q3H PRN PRN Reason: Pain Last Admin: 04/07/18 05:13 Dose: 100 mcg Fentanyl (Sublimaze) Confirm Administered Dose 100 mcg .ROUTE .ST-MED ONE Stop: 04/07/18 12:09 Fentanyl (Sublimaze) 50 mcg IVPUSH Q5M PRN PRN Reason: Pain Stop: 04/07/18 19:00 Fentanyl/Bupivacaine HCl (Fentanyl/Bupivacaine/Ns 2 Mcg-0.125% 100 Ml) 100 ml EPIDUR ASDIRECTED [facility] Fentanyl/Bupivacaine HCl (Bvaxkgpy-Pusln-Nr 2 Mcg/Ml-0.125%) 100 ml EP ASDIRECTED [facility] Last Admin: 04/07/18 05:14 Dose: 100 ml Ampicillin Sodium 2 gm/ Sodium (Chloride) 100 mls @ 200 mls/hr IV ONETIME ONE Stop: 04/06/18 14:59 Last Admin: 04/06/18 14:28 Dose: 200 mls/hr Ampicillin Sodium 1 gm/ Sodium (Chloride) 100 mls @ 200 mls/hr IV Q4H [facility] Last Admin: 04/07/18 10:36 Dose: 200 mls/hr Lactated Ringer's (Ringers, Lactated) 1,000 mls @ 100 mls/hr IV ASDIRECTED [facility] Last Admin: 04/07/18 12:12 Dose: 125 mls/hr Oxytocin/Lactated Ringer's (Pitocin In Lr 10 Units/1,000 Ml) 10 unit in 1,000 mls @ 12 mls/hr IV TITRATE KIRAN; Protocol Last Titration: 04/07/18 10:33 Dose: 8 munits/min, 48 mls/hr Oxytocin/Lactated Ringer's (Pitocin In Lr 10 Units/1,000 Ml) 10 unit in 1,000 mls @ 500 mls/hr IV .CONTINUOUS KIRAN Dextrose/Lactated Ringer's (Dextrose 5%-Lactated Ringers) 1,000 mls @ 150 mls/ hr IV ASDIRECTED [facility] Last Admin: 04/07/18 09:36 Dose: 150 mls/hr Dextrose/Lactated Ringer's (Dextrose 5%-Lactated Ringers) Confirm Administered Dose 1,000 mls @ as directed .ROUTE .STK-MED ONE Stop: 04/07/18 08:05 Last Admin: 04/07/18 14:55 Dose: Not Given Cefazolin Sodium/Dextrose 2 gm (/ Premix) 50 mls @ 100 mls/hr IV ONETIME ONE Stop: 04/07/18 12:30 Last Admin: 04/07/18 14:56 Dose: Not Given Lactated Ringer's (Ringers, Lactated) Confirm Administered Dose 2,000 mls @ as directed .ROUTE .STK-MED ONE Stop: 04/07/18 12:54 Dextrose/Lactated Ringer's (Dextrose 5%-Lactated Ringers) 1,000 mls @ 125 mls/ hr IV ASDIRECTED [facility] Stop: 04/07/18 22:29 Ketorolac Tromethamine (Toradol) Confirm Administered Dose 30 mg .ROUTE .STK- MED ONE Stop: 04/07/18 13:22 Ketorolac Tromethamine (Toradol) 30 mg IVPUSH Q6H KIRAN Stop: 04/08/18 07:31 Last Admin: 04/08/18 07:37 Dose: 30 mg Lidocaine/Epinephrine (Xylocaine-Mpf 2%-Epi 1:200,000) Confirm Administered Dose 20 ml .ROUTE .STK-MED ONE Stop: 04/07/18 12:06 Lidocaine/Epinephrine (Xylocaine-Mpf 2%-Epi 1:200,000) Confirm Administered Dose 20 ml .ROUTE .STK-MED ONE Stop: 04/07/18 12:06 Lidocaine/Epinephrine (Xylocaine-Mpf 1.5% W/Epinephrine 1:200,000) 5 ml .ROUTE .STK-MED ONE Stop: 04/07/18 22:01 Metoclopramide HCl (Reglan) 10 mg IVPUSH ONETIME ONE Stop: 04/07/18 12:02 Last Admin: 04/07/18 12:08 Dose: 10 mg Misoprostol (Cytotec) 25 mcg VAG ONETIME ONE Stop: 04/06/18 14:31 Last Admin: 04/06/18 14:28 Dose: 25 mcg Misoprostol (Cytotec) 50 mcg VAG Q4HR [facility] Last Admin: 04/07/18 06:21 Dose: Not Given Morphine Sulfate (Duramorph Pf) Confirm Administered Dose 1 mg .ROUTE .STK-MED ONE Stop: 04/07/18 12:05 Nalbuphine HCl (Nubain) 10 mg IVPUSH Q2H PRN PRN Reason: pain Non-Formulary Medication (Valacyclovir [Valtrex]) 500 mg PO BID [facility] Ondansetron HCl (Zofran) 4 mg IVPUSH ONETIME PRN PRN Reason: Nausea/Vomiting Ondansetron HCl (Zofran) Confirm Administered Dose 4 mg .ROUTE .STK-MED ONE Stop: 04/07/18 12:28 Ondansetron HCl (Zofran) 4 mg IVPUSH ONETIME PRN PRN Reason: Nausea/Vomiting Oxytocin (Pitocin) Confirm Administered Dose 20 unit .ROUTE .STK-MED ONE Stop: 04/07/18 12:07 Phenylephrine HCl (Phenylephrine In Ns 100 Mcg/Ml) Confirm Administered Dose 1 mg .ROUTE .STK-MED ONE Stop: 04/07/18 12:43 Prenat Multivit/[place]/Iron/Folic Ac ( Plus Iron) 1 each PO DAILY [facility] Sodium Bicarbonate (Sodium Bicarbonate 8.4%) Confirm Administered Dose 50 meq .ROUTE .STK-MED ONE Stop: 04/07/18 12:06 Sodium Chloride (Saline Flush) 10 ml FLUSH ASDIRECTED PRN PRN Reason: Keep Vein Open Valacyclovir HCl (Valtrex) 500 mg PO BID [facility] Last Admin: 04/06/18 20:59 Dose: 500 mg
== END 2018-04-09 12:50 | disposition home or self-care (01) | DRG 787 ==
LOC: JD.OB 12:41 → OBSVTOIN 04-07 12:41 → JD.OB 04-07 12:42
PROVIDERS: ADMIT Obstetrics & Gynecology; ATTEND Obstetrics & Gynecology
PROC: 10D00Z1 Extraction of Products of Conception, Low, Open Approach (ICD-10-PCS; principal; 2018-04-07)
PROC: 3E0P7VZ Introduction of Hormone into Female Reproductive, Via Natural or Artificial Opening (ICD-10-PCS; principal; 2018-04-07)
PROC: 6A550ZT Pheresis of Cord Blood Stem Cells, Single (ICD-10-PCS; principal; 2018-04-07)
PROC: 3E0R3BZ Introduction of Anesthetic Agent into Spinal Canal, Percutaneous Approach (ICD-10-PCS; 2018-04-07)
PROC: 00HU33Z Insertion of Infusion Device into Spinal Canal, Percutaneous Approach (ICD-10-PCS; 2018-04-07)
DX: O48.0 Post-term pregnancy (principal); O98.32 Other infections with a predominantly sexual mode of transmission complicating childbirth; O99.824 Streptococcus B carrier state complicating childbirth; O75.81 Maternal exhaustion complicating labor and delivery; O69.81X0 Labor and delivery complicated by cord around neck, without compression, not applicable or unspecified; O64.0XX0 Obstructed labor due to incomplete rotation of fetal head, not applicable or unspecified; A60.00 Herpesviral infection of urogenital system, unspecified; Z37.0 Single live birth; O90.81 Anemia of the puerperium; D64.9 Anemia, unspecified; Z3A.40 40 weeks gestation of pregnancy; O99.344 Other mental disorders complicating childbirth; F32.9 Major depressive disorder, single episode, unspecified; O99.62 Diseases of the digestive system complicating childbirth; K21.9 Gastro-esophageal reflux disease without esophagitis; O63.1 Prolonged second stage (of labor)
CPT/HCPCS: 01967; 36415; 51702; 59025; 85025; 86592; 86850; 86900; 86901; 94762; A9270-GY; J0290; J0690; J1885; J2274; J2370; J2405; J2590; J2765; J3010; J3490; J7030; J7042; J7120